=== PATIENT | female | born 1955 | race Native Hawaiian/Other Pacific Islander ===

== ENCOUNTER 2016-11-26 22:26 | Observation (INO) | payer OTHER, BC ==
[~2016-11-26] VITALS: Ht 162.6 cm; Wt 138.9 kg
[2016-11-26 22:45] VITALS: BP 150/88; TEMP 98.1
[2016-11-26 23:47] LABS: PLATELET COUNT 304 K/uL (152-353)
[2016-11-26 23:57] LABS: POTASSIUM 3.6 mmol/L (3.6-5.2); SODIUM 136 mmol/L (136-145)
[2016-11-27] VITALS (7 sets, daily range): BP systolic 115–156; BP diastolic 54–90; TEMP 97.7–98.9; Ht 162.6 cm; Wt 138.9 kg
[2016-11-27 06:12] LABS: PLATELET COUNT 288 K/uL (152-353)
[2016-11-27 06:32] LABS: POTASSIUM 3.7 mmol/L (3.6-5.2); SODIUM 137 mmol/L (136-145)
[2016-11-27] MEDS ORDERED: DULO60CA2 PO (11:26)
[2016-11-27] MEDS ORDERED: METFORMIN HCL500 MG PO (11:27)
[2016-11-27] MEDS ORDERED: TRAM50TA PO (11:29)
[2016-11-27] MEDS ORDERED: MOBIC15 MG PO (11:30)
[2016-11-27] MEDS ORDERED: GRALISE600 MG PO (11:30)
[2016-11-27] MEDS ORDERED: PAXIL20 MG PO (11:31)
[2016-11-27] MEDS ORDERED: AMITRIPTYLIN150 MG PO (11:32)
[2016-11-27] MEDS ORDERED: CYCL10TA35 PO (11:33)
[2016-11-28 04:00] VITALS: BP 128/79; TEMP 98.6
[2016-11-28 05:06] LABS: PLATELET COUNT 281 K/uL (152-353)
[2016-11-28 05:25] LABS: POTASSIUM 3.9 mmol/L (3.6-5.2); SODIUM 141 mmol/L (136-145)
--- NOTE | 2016-11-28 06:38 | NUR ---
11/27/161999 WARM COMPRESS APPLIED TO PATIENT.
--- NOTE | 2016-11-28 06:39 | NUR ---
11/27/16 6860 WARM COMPRESS APPLIED TO PATIENT.
--- NOTE | 2016-11-28 06:40 | NUR ---
11/28/16 0400 WARM COMPRESS APPLIED TO PATIENT.
[2016-11-28 07:56] VITALS: BP 133/77; TEMP 98.3
[2016-11-28 12:00] VITALS: BP 114/69; TEMP 98.4
[2016-11-28 16:00] VITALS: BP 142/58; TEMP 98.4
--- NOTE | 2016-11-28 19:40 | NUR ---
Received pt resting in bed. Assessment completed. No distress noted. Denies pain at this time. Warm compress noted to neck. Bed in lowest position. Call light within reach. Will continue to monitor.
[2016-11-28 20:00] VITALS: BP 122/46; TEMP 98.2
[2016-11-29] VITALS: BP 141/64; TEMP 97.8
[2016-11-29 04:00] VITALS: BP 153/82; TEMP 97.7
--- NOTE | 2016-11-29 08:20 | NUR ---
IN TO SEE PT. PT AND STATING THAT DR MCPHERSON SAID "WE WILL GO BY VEHICLE THIS AM TO [facility] TO MY SURGEON." SPOKE WITH DR MCPHERSON REGARDING MISINFORMATION FROM REPORT GIVEN THIS AM. STATED THAT WE ARE AWAITING A BED ASSIGNMENT AND PATIENT TO BE TRANSFERRED VIA POV.
--- NOTE | 2016-11-29 08:30 | NUR ---
SPOKE WITH MAYRA FROM [facility] BED ASSIGNMENT RECEIVED PT TO BE IN ROOM 7048.
--- NOTE | 2016-11-29 09:30 | NUR ---
SPOKE WITH MAYRA WITH [facility]ER CENTER REGARDING PT'S ACCEPTANCE TO FACILITY. D/T PROTOCOL PATIENT WILL NOT BE COMING VIA EMS SHE WILL BE COMING POV. STACY WARE, RN GAVE CLEARANCE FOR PATIENT TO BE TRANSFERRED POV FROM OUR FACILITY. MAYRA FROM [facility] STATED PT IS ACCEPTED.
--- NOTE | 2016-11-29 09:35 | NUR ---
SPOKE WITH AURELIA THACKER AT [facility]. REPORT ON PATIENT GIVEN. INFORMED HER PT WILL BE COMING ACCEPTED BY DR ALVARENGA VIA POV.
== END 2016-11-29 09:25 | disposition short-term general hospital (02) ==
LOC: ED 22:26 → MED/SURG 11-27 00:23
PROVIDERS: ADMIT Family Medicine
DX: T81.4XXA Infection following a procedure, initial encounter (principal); L03.221 Cellulitis of neck; E66.8 Other obesity; E53.8 Deficiency of other specified B group vitamins; F32.89 Other specified depressive episodes; G62.89 Other specified polyneuropathies; R73.02 Impaired glucose tolerance (oral)
CPT/HCPCS: 36415; 80053; 80202; 81000; 82607; 83036; 83735; 84100; 84443; 85027; 87040; 87077; 87185; 87205; 96361; 96365; 96366; 96367; 96375; 99220; 99284; G0378; J1450; J1885; J3370; J3490